=== PATIENT | male | born 1960 | race African-American/Black ===

== ENCOUNTER 2019-08-17 10:13 | Outpatient (CLI) | payer OTHER, SELFPAY ==
--- NOTE | 2019-08-17 10:23 | CT_ITS ---
WS: [id number] CT NECK WITH CONTRAST HISTORY: BRAIN STEM STROKE SYNDROME TECHNIQUE: Contiguous 5 mm axial images are performed through the neck with intravenous contrast. Sag ittal and coronal reformats are also submitted. All CT scans at [facility] use at least o ne of these dose optimization techniques: automated exposure control; mA and/or kV adjustment per pat ient size (includes targeted exams where dose is matched to clinical indication); or iterative recons truction. CONTRAST: CONTRAST: Omnipaque 300; 95 mL IV. DLP: 781.48 mGy.cm COMPARISON: None available. Nasopharynx, oropharynx, hypopharynx and larynx are unremarkable. No soft tissue masses or abnormal e nhancement. There is some very slight asymmetry of the airway with the RIGHT aryepiglottic fold being larger than the LEFT but no mass or abnormal enhancement. Torus tubarius and fossa of Rosenmuller and parapharyngeal fat are normal. Small benign-appearing lymph nodes at level 1, level 2 and level 3. The largest lymph nodes measure 6 mm. Thyroid gland and salivary glands are normally enhancing with no masses. 8mm nodule in the inferior R IGHT parotid gland was also present in 2018 with no increase in size. C2-C3 vertebral body osteophytes with mild encroachment upon the ventral cervical cord. No abnormality at the skull base. There is atherosclerotic plaque noted within the intracranial and e xtracranial carotid arteries. No significant stenosis identified. Small caliber RIGHT vertebral arter y is intermittently visualized throughout the transverse foramina. Visualized paranasal sinuses and mastoid air cells are normal. Lung apices are clear. CT/CT neck w con* [id number] IMPRESSION: 1. No neck mass or abnormal enhancement or adenopathy. 2. Minimal asymmetry of the RIGHT aryepiglottic fold which is slightly larger than the LEFT. No mass or abnormal enhancement. 3. Intermittently visualized RIGHT vertebral artery. Consistent with atheroscl erotic disease progression since 03/04/2018.
--- NOTE | 2019-08-17 10:23 | FL_ITS ---
WS: [id number] FL barium swallow modifd [id number] REASON FOR EXAM: Other dysphagia FLUOROSCOPY TIME: 6.3 minutes FINDINGS: Modified barium swallow. Modified barium swallow with fluoroscopy performed by radiologist showed pooling and premature spilling. After the ingestion of a solid capsule patient showed a hang-up in the vallecula area. Finally passed into the stomach. Please see speech pathologist for workup. FL/FL barium swallow modifd [id number] IMPRESSION: Modified barium swallow.
[2019-08-17] MEDS: iohexol 300 mg/mL 100 mL Btl IV (11:13)
== END 2019-08-17 10:14 | disposition home or self-care (01) ==
LOC: CT 10:16
PROVIDERS: Family Provider Nurse Practitioner Family; PCP Emergency Medicine Emergency Medical Services; Visit Provider Specialist
DX: G46.3 Brain stem stroke syndrome (principal); R09.89 Other specified symptoms and signs involving the circulatory and respiratory systems
CPT/HCPCS: 70491; 74230; 92611

== ENCOUNTER 2021-02-09 01:30 | Emergency (ER) | payer OTHER, MEDICARE, SELFPAY ==
[2021-02-09 01:31] VITALS: BP 152/105; PULSE 84; RESP 15; TEMP 37.4; O2SAT 96; BMI 27.6
--- NOTE | 2021-02-09 02:31 | ED_ITS ---
HPI - Male Genitourinary General: Chief complaint: Urogenital-Male Stated complaint: BLOOD IN URINE Time Seen by Provider: 02/09/21 01:45 History of Present Illness: HPI Narrative: 60-year-old male quadriplegic with a history of stroke. He is only on aspirin for antiplatelet therapy. He presents with worsening hematuria status post Ventura placement 2 days ago. It was a bit of a traumatic insertion, and the patient had some blood initially, but this seems to worsen over the last 24 hours with passage of some clots, and dark mullins Gregg-Aid colored urine. He denies any fever. He was placed on cephalexin yesterday for a assumed bladder infection. He does note some burning with release of the urine. noted some bleeding at the urethral meatus earlier which has not continued. MD Complaint: other Onset (ago): day(s) Duration: constant Location: penis Severity: moderate Quality: aching and burning Relieving factors: none Exacerbating factors: none Context: other Associated symptoms: Reports dysuria and hematuria; Deny discharge, fevers/chills, nausea, swelling, urinary retention or vomiting Review of Systems Const: Denies: fever(s) Card: Denies: chest pain Resp: Denies: dyspnea, productive cough or non-productive cough GI: Denies: nausea or vomiting : Reports: dysuria and hematuria Neuro: Denies: confusion Physical Exam Const: COMMON NORMALS: no acute distress GENERAL APPEARANCE: cooperative ORIENTATION/CONSCIOUSNESS: Yes awake, Yes oriented to person, Yes oriented to place and Yes oriented to time Resp: COMMON NORMALS: normal respiratory effort, No use of accessory muscles and clear to auscultation bilaterally AUSCULTATION: clear to auscultation bilaterally Cardio: COMMON NORMALS: regular rate and regular rhythm RATE: regular rate RHYTHM: regular rhythm GI: COMMON NORMALS: Normal to inspection, nondistended, normoactive bowel cristiane nds present, Soft to palpation and non-tender PALPATION: Yes Soft to palpation : OTHER: Mild scrotal swelling. There is some old blood at the urethral meatus, and penile head. No active bleeding currently. There is a diaper dermatitis present with mild excoriation that is aging. No open wounds Neuro: SENSORIUM/ORIENTATION: Yes oriented to person, Yes oriented to place and Yes oriented to time Course Vital Signs: Vital signs: Vital Signs Temperature 98.3 F 02/09/21 03:09 Pulse Rate 71 02/09/21 03:09 Respiratory Rate 18 02/09/21 03:09 Blood Pressure 158/93 02/09/21 03:09 Pulse Oximetry 94 02/09/21 03:09 MDM - Male MDM Narrative: Medical decision making narrative: Ventura irrigated, with return of strawberry lemonade colored urine. And seems to be clearing in the tube. Good output. Urinalysis reveals greater than 100 wites and reds. There is a 2+ leukocyte esterase. And 4+ bacteria. Because of this, we will cover with antibiotics. He will be told to stop the cephalexin I do believe this is a traumatic Ventura placement causing the bleeding with a secondary infection. Lab Data: Labs: Lab Results 02/09/21 02/09/21 02/09/21 Range/Units 03:02 03:30 03:30 WBC 12.8 H (4.0-10.0) 10^3/ uL RBC 4.33 (4.1-5.3) 10^6/u L Hgb 12.6 (11.7-16.6) g/dL Hct 37.0 L (42.0-52.0) % MCV 85.5 (80-94) fl MCH 29.1 (28.0-34.0) pg MCHC 34.1 (30.0-36.0) g/dL RDW 14.5 (12.1-15.1) % Plt Count 231 (130-400) 10^3/c mm MPV 12.1 H (7.4-10.4) fL Neut % (Auto) 68.9 % Lymph % (Auto) 19.2 % Worth % (Auto) 8.4 % Eos % (Auto) 2.8 % Baso % (Auto) 0.4 % Neut # (Auto) 8.81 H (1.8-7.7) 10^3/u L Lymph # (Auto) 2.5 (0.8-4.8) 10^3/u L Worth # (Auto) 1.1 H (0.2-0.9) 10^3/u L Eos # (Auto) 0.4 (0.0-0.8) 10^3/u L Baso # (Auto) 0.1 (0.0-0.1) 10^3/u L Nucleated RBC % (a uto) 0 % Nucleated RBCs # 0.0 /100WBC Sodium 135 L (136-145) mmol/L Potassium 4.2 (3.5-5.1) mmol/L Chloride 97 L (98-107) mmol/L Carbon Dioxide 27 (22-29) mmol/L Anion Gap 15.2 (5-19) BUN 6 L (8-23) mg/dL Creatinine 0.6 L (0.7-1.2) mg/dL GFR Calculation 166.3 H (90-130) mL/min Glucose 285 H (65-115) mg/dL Calculated Osmolal ity 288 (285-295) mOsm/k g Calcium 8.7 (8.5-10.5) mg/dL Total Bilirubin 0.4 (0.15-1.2) mg/dL AST 22 (0-40) U/L ALT 51 H (0-41) U/L Alkaline Phosphata se 200 H (40-130) IU/L Total Protein 7.5 (6.6-8.7) g/dL Albumin 3.3 L (3.5-5.2) g/dL Globulin 4.2 (1.3-4.6) g/dL Urine Color Red (Yellow) Urine Appearance Sl cloudy A (CLEAR) Urine pH 6.5 (5-7) Ur Specific Gravit y 1.005 (1.005-1.030) Urine Protein 1+ H (Negative) Urine Glucose (UA) 2+ H (Normal) Urine Ketones Negative (Negative) Urine Blood 3+ H (Negative) Urine Nitrate Negative (Negative) Urine Bilirubin Neg (Negative) Urine Urobilinogen Norm (Negative) mg/dL Ur Leukocyte Angy ase 2+ H (Negative) Urine RBC >100 H (0-2) /hpf Urine WBC >100 H (0-5) /hpf Ur Squamous Epith Cells 0-4 H (0-5) /hpf Amorphous Sediment Not Reportable Urine Bacteria 4+ H (NONE) /hpf Discharge Plan Discharge Patient Disposition: Home Clinical Impression: Urinary tract infection Qualifiers: Urinary tract infection type: acute cystitis Hematuria presence: with hematuria Qualified Code(s): N30.01 - Acute cystitis with hematuria Ventura catheter problem Qualifiers: Encounter type: initial encounter Qualified Code(s): T83.9XXA - Unspecified complication of genitourinary prosthetic device, implant and graft, initial encounter Condition: Stable Prescriptions: New Cipro 500 mg tablet 500 mg PO BID Qty: 14 RF: 0 Discharge Orders: Discharge ED (Routine); Ordered 02/09/21 Ordered By: Leandro Loyd Referrals: Manuel Wyman DO [Primary Care Provider] - 4-7 days Discharge Diet: Advance as tolerated Patient Instructions: Urinary Tract Infection in Men (ED), Ventura Catheter Placement and Care (ED) Activity Restrictions/Additional Instructions: Return for slowing or stoppage of the Ventura catheter output. Return for passing large clots. Return for fever greater than 100, vomiting liquids or medications, mental status worsening, any other concerning symptoms. 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
--- NOTE | 2021-02-09 03:07 | PC.NURSE ---
3000 ns bladder irrigation preformed per dr order, urine is pink lemonade color with scant clots noted. dr updated, patient tolerated well
[2021-02-09 03:09] VITALS: BP 158/93; PULSE 71; RESP 18; TEMP 36.8; O2SAT 94
[2021-02-09 03:28] LABS: Add Urine Microscopic? YES; Bilirubin Urine Neg (Negative); Blood Urine 3+ (Negative); Glucose Urine UA 2+ (Normal); Ketones Urine Negative (Negative); Leukocyte Esterase Urine 2+ (Negative); Nitrate Urine Negative (Negative); Protein Urine 1+ (Negative); Specific Gravity, Urine 1.005 (1.005-1.030); Urine Color Red (Yellow); Urobilinogen Urine Norm (Negative); pH Urine 6.5 (5-7)
[2021-02-09 03:30] LABS: RBC Urine >100 /hpf (0-2); Squamous Epithelial Cell Urine 0-4 /hpf (0-5); WBC Urine >100 /hpf (0-5)
[2021-02-09 03:31] LABS: Add Urine Culture? Yes; Bacteria Urine 4+ /hpf
[2021-02-09 03:39] LABS: Basophils # 0.1 10^3/uL (0.0-0.1); Basophils % 0.4 %; Eosinophils # 0.4 10^3/uL (0.0-0.8); Eosinophils % 2.8 %; Hemoglobin 12.6 g/dL (11.7-16.6); Lymphocytes # 2.5 10^3/uL (0.8-4.8); Lymphocytes % 19.2 %; Mean Corpuscular HGB Conc 34.1 g/dL (30.0-36.0); Mean Corpuscular Hemoglobin 29.1 pg (28.0-34.0); Mean Corpuscular Volume 85.5 fl (80-94); Mean Platelet Volume 12.1 fL (7.4-10.4); Monocytes # 1.1 10^3/uL (0.2-0.9); Monocytes % 8.4 %; Neutrophils # 8.81 10^3/uL (1.8-7.7); Neutrophils % 68.9 %; Nucleated Red Blood Cells % 0 %; Platelet Count 231 10^3/cmm (130-400); Red Blood Count 4.33 10^6/uL (4.1-5.3); Red Cell Distribution Width 14.5 % (12.1-15.1); White Blood Count 12.8 10^3/uL (4.0-10.0)
[2021-02-09 04:01] LABS: Alanine Aminotransferase 51 U/L (0-41); Albumin Level 3.3 g/dL (3.5-5.2); Alkaline Phosphatase 200 IU/L (40-130); Aspartate Amino Transferase 22 U/L (0-40); Blood Urea Nitrogen 6 mg/dL (8-23); Calcium 8.7 mg/dL (8.5-10.5); Carbon Dioxide 27 mmol/L (22-29); Chloride 97 mmol/L (98-107); Globulin 4.2 g/dL (1.3-4.6); Glomerular Filtration Rate 166.3 mL/min (90-130); Glucose 285 mg/dL (65-115); Osmolality Calculated 288 mOsm/kg (285-295); Sodium 135 mmol/L (136-145); Total Bilirubin 0.4 mg/dL (0.15-1.2); Total Protein 7.5 g/dL (6.6-8.7)
[2021-02-09 04:33] LABS: Anion Gap 15.2 (5-19)
[2021-02-09 04:34] LABS: Potassium 4.2 mmol/L (3.5-5.1)
== END 2021-02-09 06:30 | disposition home or self-care (01) ==
PROVIDERS: Emergency Provider Emergency Medicine; PCP Emergency Medicine Emergency Medical Services
DX: T83.518A Infection and inflammatory reaction due to other urinary catheter, initial encounter (principal); N30.01 Acute cystitis with hematuria; Y84.6 Urinary catheterization as the cause of abnormal reaction of the patient, or of later complication, without mention of misadventure at the time of the procedure
CPT/HCPCS: 80053; 81001; 85025; 87077; 87086; 87186; 99283